=== PATIENT | female | born 1940 | race African-American/Black ===

== ENCOUNTER 2023-12-08 21:20 | Emergency (ER) | payer OTHER, MEDICAID ==
[~2023-12-08] VITALS: Ht 160 cm; Wt 65.0 kg
[2023-12-08 21:31] VITALS: O2SAT 100
[2023-12-08 22:23] VITALS: TEMP 36.55848; O2SAT 95
[2023-12-08] MEDS ORDERED: SODIUM CHLORIDE 0.9% 500 ML IV NR (23:00)
[2023-12-08 23:25] LABS: BASOPHILS % 0.8 % (0.0-2.0); EOSINOPHILS % 2.8 % (0.0-5.0); HEMOGLOBIN. 9.9 g/dL (12.0-16.0); LYMPHOCYTES % 29.9 % (20.0-50.0); MEAN CORPUSCULAR HEMOGLOBIN 29.6 pg (28.0-32.0); MEAN CORPUSCULAR HGB CONC 33.1 g/dL (31.0-37.0); MEAN CORPUSCULAR VOLUME 89.5 fL (81.0-99.0); MONOCYTES % 9.9 % (2.0-8.0); NEUTROPHILS % 56.6 % (40.0-76.0); PLATELET 200 x1000/uL (130-400); RED BLOOD CELL COUNT 3.36 mill/uL (4.2-5.4); RED CELL DISTRIBUTION WIDTH 15.5 % (11.6-14.6); WHITE BLOOD COUNT 3.7 x1000/uL (4.5-11.0)
[2023-12-09 00:10] LABS: TROPONIN I HIGH SENSITIVITY 22 ng/L (3.0-34)
[2023-12-09 00:11] LABS: ALANINE AMINOTRANSFERASE 20 IU/L (10-49); ALBUMIN 4.3 g/dL (3.2-4.8); ASPARTATE AMINOTRANSFERASE 37 IU/L (<34)
[2023-12-09 00:12] LABS: BILIRUBIN TOTAL 0.4 mg/dL (0.1-1.0); PROTEIN TOTAL 6.9 g/dL (6.0-8.3)
[2023-12-09 00:39] LABS: BILIRUBIN DIRECT < 0.1 mg/dL (<=3.0)
[2023-12-09 00:40] LABS: ETHANOL BLOOD < 10 mg/dL (<10)
[2023-12-09 01:21] LABS: TROPONIN I HIGH SENSITIVITY 21 ng/L (3.0-34)
[2023-12-09 01:52] VITALS: BP 131/68; PULSE 61; RESP 15
== END 2023-12-09 06:15 | disposition home or self-care (01) ==
LOC: ER 21:20
DX: R42 Dizziness and giddiness (principal); D64.9 Anemia, unspecified; I10 Essential (primary) hypertension; Z85.9 Personal history of malignant neoplasm, unspecified; Z87.891 Personal history of nicotine dependence
CPT/HCPCS: 36415; 71045; 80076; 80320; 83880; 84484; 85025; 93005; 99285; G0480